=== PATIENT | male | born 1980 | race African-American/Black ===

== ENCOUNTER 2023-09-17 19:14 | Emergency (ER) | payer SELFPAY ==
[~2023-09-17] VITALS: Ht 177.8 cm; Wt 97.7 kg
[2023-09-17] MEDS ORDERED: NS 1,000 ML IV ONE (19:45)
[2023-09-17 19:52] LABS: BASO % 0.2 % (0.0-1.0); EOS # 0.2 10^3/uL (0.0-0.5); EOS % 1.8 % (0.0-3.0); HEMATOCRIT 45.1 % (42.0-52.0); LYMPH % 23.7 % (24.0-44.0); MEAN CORPUSCULAR HEMOGLOBIN 29.5 pg (27.0-33.0); MEAN CORPUSCULAR HGB CONC 33.3 g/dl (32.0-36.5); MEAN CORPUSCULAR VOLUME 88.8 fl (80.0-96.0); MONO # 1.4 10^3/uL (0.0-0.8); NEUTROPHILS # 7.9 10^3/uL (1.5-8.5); NEUTROPHILS % 62.8 % (36.0-66.0); PLATELET COUNT, AUTOMATED 245 10^3/uL (150-450); RED BLOOD COUNT 5.08 10^6/uL (4.30-6.10); WHITE BLOOD COUNT 12.6 10^3/uL (4.0-10.0)
[2023-09-17 19:58] LABS: VENOUS BASE EXCESS -1.8 (-2.0-2.0); VENOUS HCO3 23.4 MMOL/L (23.0-27.0); VENOUS O2 SATURATION 84.4 % (60.0-80.0); VENOUS PARTIAL PRESSURE CO2 41.2 mmHg (38.0-50.0); VENOUS PARTIAL PRESSURE O2 48.8 mmHg (30.0-50.0); VENOUS PH 7.372 UNITS (7.330-7.430); VENOUS STANDARD HCO3 22.7 MMOL/L; VENOUS TOTAL CO2 24.7 MMOL/L (24.0-28.0)
[2023-09-17 20:00] VITALS: TEMP 98
[2023-09-17] MEDS ORDERED: ISOVUE-370 76% 100ML VIAL As Ordered ONE (20:09)
[2023-09-17 20:17] LABS: BLOOD UREA NITROGEN 12 MG/DL (9-23); CALCIUM LEVEL 9.4 MG/DL (8.5-10.1); CARBON DIOXIDE LEVEL 28 MMOL/L (20-31); CHLORIDE LEVEL 104 MMOL/L (98-107); CK-MB VALUE MASS 1.4 NG/ML (<3.6); CREATININE FOR GFR 1.09 MG/DL (0.70-1.30); GLOMERULAR FILTRATION RATE > 60.0 (>60); GLUCOSE, FASTING 89 MG/DL (60-100); MAGNESIUM LEVEL 1.7 MG/DL (1.8-2.4); POTASSIUM SERUM 4.3 MMOL/L (3.5-5.1); SODIUM LEVEL 138 MMOL/L (136-145)
[2023-09-17 20:21] LABS: THYROID STIMULATING HORMONE 2.741 uIU/ML (0.55-4.78)
[2023-09-17 20:25] LABS: CPK CREATINE PHOSPHOKINASE 586 U/L (46-171); MB/CK RELATIVE INDEX 0.23 (< OR =4)
[2023-09-17 21:17] LABS: CPK CREATINE PHOSPHOKINASE 518 U/L (46-171)
[2023-09-17 21:26] LABS: CK-MB VALUE MASS < 1.0 NG/ML (<3.6); MB/CK RELATIVE INDEX 0.19 (< OR =4)
[2023-09-17 21:49] LABS: ALBUMIN 4.2 G/DL (3.2-5.2); ALKALINE PHOSPHATASE 76 U/L (46-116); ALT/SGPT 45 U/L (7.0-40); AST/SGOT 28 U/L (<34); BILIRUBIN,DIRECT < 0.1 MG/DL (<0.4); BILIRUBIN,TOTAL 0.3 MG/DL (0.3-1.2); TOTAL PROTEIN 7.8 G/DL (5.7-8.2)
[2023-09-17 22:00] VITALS: O2SAT 96
[2023-09-17 22:12] VITALS: BP 164/88
== END 2023-09-17 22:44 | disposition home or self-care (01) ==
LOC: EDBD 19:14 → M ED 19:14
DX: R55 Syncope and collapse (principal); E86.0 Dehydration; I51.7 Cardiomegaly
CPT/HCPCS: 70450; 71275; 80047; 80048; 80076; 82550; 82553; 82803; 83735; 83880; 84443; 84484; 85025; 87486; 87581; 87633; 87798; 93005; 93041; 94760; 96360; 96361; 99285; Q9967

== ENCOUNTER 2023-09-18 22:42 | Observation (INO) | payer SELFPAY ==
[~2023-09-18] VITALS: Ht 177.8 cm; Wt 58.0 kg
[2023-09-19] VITALS (7 sets, daily range): BP systolic 120–147; BP diastolic 87–98; TEMP 97.5–98.6; O2SAT 94–99
[2023-09-19 00:44] LABS: BASO % 0.3 % (0.0-1.0); EOS # 0.1 10^3/uL (0.0-0.5); EOS % 0.8 % (0.0-3.0); HEMATOCRIT 44.7 % (42.0-52.0); HEMOGLOBIN 14.6 g/dl (13.5-17.5); LYMPH # 2.2 10^3/uL (1.5-5.0); LYMPH % 18.4 % (24.0-44.0); MEAN CORPUSCULAR HEMOGLOBIN 29.1 pg (27.0-33.0); MEAN CORPUSCULAR HGB CONC 32.7 g/dl (32.0-36.5); MEAN CORPUSCULAR VOLUME 89.2 fl (80.0-96.0); MONO # 0.8 10^3/uL (0.0-0.8); MONO % 6.8 % (2.0-8.0); NEUTROPHILS # 8.8 10^3/uL (1.5-8.5); NEUTROPHILS % 73.2 % (36.0-66.0); PLATELET COUNT, AUTOMATED 244 10^3/uL (150-450); RED BLOOD COUNT 5.01 10^6/uL (4.30-6.10)
[2023-09-19 01:00] LABS: CK-MB VALUE MASS 1.8 NG/ML (<3.6)
[2023-09-19 01:01] LABS: BLOOD UREA NITROGEN 10 MG/DL (9-23); CALCIUM LEVEL 9.3 MG/DL (8.5-10.1); CARBON DIOXIDE LEVEL 29 MMOL/L (20-31); CHLORIDE LEVEL 102 MMOL/L (98-107); CPK CREATINE PHOSPHOKINASE 537 U/L (46-171); CREATININE FOR GFR 1.09 MG/DL (0.70-1.30); GLOMERULAR FILTRATION RATE > 60.0 (>60); GLUCOSE, FASTING 115 MG/DL (60-100); MB/CK RELATIVE INDEX 0.33 (< OR =4); POTASSIUM SERUM 4.4 MMOL/L (3.5-5.1); SODIUM LEVEL 138 MMOL/L (136-145)
[2023-09-19] MEDS ORDERED: NS 1,000 ML IV ONE ×2 (02:40→02:50)
[2023-09-19 02:54] LABS: ETHYL ALCOHOL (ETHANOL) < 0.003 % (0.000-0.010); MAGNESIUM LEVEL 1.7 MG/DL (1.8-2.4)
[2023-09-19] MEDS ORDERED: METOPROLOL 5 MG/5 ML VIAL As Ordered ONE (03:02)
[2023-09-19] MEDS: METOPROLOL 5 MG/5 ML VIAL IV SCH ×2 (03:09→03:17)
[2023-09-19 03:32] LABS: APPEARANCE, URINE CLEAR (CLEAR); BACTERIA, URINE AUTO NEGATIVE (NEGATIVE); BILIRUBIN, URINE AUTO NEGATIVE (NEGATIVE); BLOOD, URINE BLOOD NEGATIVE (NEGATIVE); COLOR, URINE YELLOW (YELLOW); GLUCOSE, URINE (UA) AUTO NEGATIVE (NEGATIVE); KETONE, URINE AUTO NEGATIVE (NEGATIVE); LEUKOCYTE ESTERASE, URINE AUTO NEGATIVE (NEGATIVE); NITRITE, URINE AUTO NEGATIVE (NEGATIVE); PROTEIN, URINE AUTO 2+ mg/dL (NEGATIVE); RBC, URINE AUTO 0 /HPF (0-3); SPECIFIC GRAVITY URINE AUTO 1.009 (1.002-1.035); SQUAMOUS EPITHELIAL CELL UR AU 0 /HPF (0-6); UROBILINOGEN, URINE AUTO 0.2 mg/dL (0.0-2.0); WBC, URINE AUTO 2 /HPF (0-3)
[2023-09-19 03:48] LABS: AMPHETAMINES LEVEL URINE NEGATIVE (NEGATIVE); BARBITURATES URINE NEGATIVE (NEGATIVE); BENZODIAZEPINES URINE NEGATIVE (NEGATIVE)
[2023-09-19 03:49] LABS: CANNABINOIDS URINE NEGATIVE (NEGATIVE); COCAINE METABOLITE URINE NEGATIVE (NEGATIVE); METHADONE URINE NEGATIVE (NEGATIVE); OPIATES URINE NEGATIVE (NEGATIVE); PHENCYCLIDINE URINE NEGATIVE (NEGATIVE)
[2023-09-19] MEDS ORDERED: atenoloL 50 MG TAB PO ONE (04:30)
[2023-09-19] MEDS ORDERED: ATEN50TA2 PO ×2 (06:03→18:56)
[2023-09-19] MEDS ORDERED: HOME MED LIST COMPLETE! XX SCH (06:30)
[2023-09-19] MEDS ORDERED: MAG SULF 1GM/100ML (MAG RUN) 1 GM in IV 1 EA IV ONE ×2 (07:10→10:00)
[2023-09-19 08:02] LABS: IONIZED CALCIUM 4.6 MG/DL (4.5-5.3)
[2023-09-19 08:39] LABS: CHOLESTEROL RISK RATIO 7.59 (<5); HDL CHOLESTEROL 30.4 MG/DL (>40); MAGNESIUM LEVEL 1.7 MG/DL (1.8-2.4); MB/CK RELATIVE INDEX 0.22 (< OR =4); NON-HDL-C 200.6 MG/DL
[2023-09-19 08:41] LABS: THYROID STIMULATING HORMONE 2.682 uIU/ML (0.55-4.78)
[2023-09-19 08:42] LABS: FREE THYROXINE INDEX 2.7 % (1.4-3.8); T UPTAKE 34.3 % (22.5-37.0)
[2023-09-19 08:55] LABS: HEMOGLOBIN A1c 5.6 % (4.0-6.0)
[2023-09-19] MEDS ORDERED: LISI10TA22 PO (18:56)
[2023-09-19] MEDS: atenoloL 50 MG TAB PO SCH (22:32)
[2023-09-20] VITALS (9 sets, daily range): BP systolic 113–163; BP diastolic 80–103; TEMP 98–99; O2SAT 97–98
[2023-09-20] MEDS: atenoloL 50 MG TAB PO SCH (09:24)
[2023-09-20] MEDS ORDERED: ISOVUE-370 76% 100ML VIAL As Ordered ONE (11:24)
[2023-09-20 16:12] LABS: CPK CREATINE PHOSPHOKINASE 428 U/L (30-170)
[2023-09-25 09:10] LABS: CK-MB VALUE MASS 1.9 NG/ML (0.0-10.4); MB/CK RELATIVE INDEX 0.44 (< OR =4)
[2023-09-25 09:13] LABS: PROLACTIN 17.3 NG/ML (4.0-15.2)
[2023-09-25 17:08] LABS: VANILLYLMANDELIC ACID,URINE 1.1 mg/L (Undefined); VMA CREAT RATIO RANDOM UR 1.2 mg/g Creat (0.0-6.0)
[2023-09-26 10:09] LABS: DOPAMINE PLASMA 41 pg/mL (0-48); EPINEPHRINE PLASMA 102 pg/mL (0-62); NOREPINEPHRINE PLASMA 625 pg/mL (0-874)
== END 2023-09-20 14:52 | disposition home or self-care (01) ==
LOC: EDBD 22:42 → M ED 22:42 → M ED INP 09-19 07:10 → M MSPAV 09-19 07:10 → ENRESERV 09-19 09:46 → M MSPAV 09-19 13:41
PROVIDERS: ADMIT General Practice; ATTEND General Practice
DX: I16.0 Hypertensive urgency (principal); R00.0 Tachycardia, unspecified; R55 Syncope and collapse; E78.5 Hyperlipidemia, unspecified; I50.9 Heart failure, unspecified; I11.0 Hypertensive heart disease with heart failure; I27.20 Pulmonary hypertension, unspecified; Z82.49 Family history of ischemic heart disease and other diseases of the circulatory system
CPT/HCPCS: 36415; 74177; 76775; 80048; 80061; 80307; 81001; 82077; 82088; 82330; 82383; 82550; 82553; 83036; 83735; 84146; 84244; 84436; 84443; 84479; 84484; 84585; 85025; 87635; 93005; 93306; 93880; 93975; 95819; 96365; 96366; 96375; 97161; 99285; J3475; Q9967